=== PATIENT | female | born 1960 ===

== ENCOUNTER → 2017-12-07 | Outpatient (CLI) | payer OTHER ==
[~2017-12-07] MED LIST: LEVO88TA45 PO; LISI-362 PO
[2017-12-07 11:06] LABS: PLATELET COUNT, AUTOMATED 227 K/uL (150-450)
[2017-12-07 11:35] LABS: LDL CHOLESTEROL 141 mg/dl
== END ==
LOC: LAB 10:28
PROVIDERS: ATTEND Nurse Practitioner Family
DX: R51 Headache (principal); I10 Essential (primary) hypertension; E03.9 Hypothyroidism, unspecified
CPT/HCPCS: 36415; 82040; 82247; 82310; 82374; 82435; 82465; 82565; 82947; 83718; 84075; 84132; 84146; 84155; 84295; 84443; 84450; 84460; 84478; 84520; 85025; 85651; 86140

== ENCOUNTER → 2017-12-14 | Outpatient (CLI) | payer OTHER | LOC: LAB 15:02 | PROVIDERS: ATTEND Nurse Practitioner Family | DX: I10 Essential (primary) hypertension (principal) | CPT/HCPCS: 36415; 82310; 82374; 82435; 82565; 82947; 84132; 84295; 84520 ==

== ENCOUNTER → 2017-12-20 | Outpatient (CLI) | payer OTHER ==
[~2017-12-20] MED LIST changes: +GADOBENATE 529MG/1ML 15ML VIAL IVP ONE
--- NOTE | 2017-12-20 10:20 | RADIOLOGY IMAGING REPORT ---
FACILITY: [facility] - [place] PATIENT NAME: Tiffanie Oliveira : 1960 MR: [id number] V: [id number] EXAM DATE: ORDERING PHYSICIAN: MARCOS LAI TECHNOLOGIST: Location: [facility] - [place] Patient: Tiffanie Oliveira : 1960 Visit/Account:[id number] Date of Sevice: 12/20/2017 Examination: MR brain without and with contrast History: Headaches Comparison: None Technique: Multiplane MR imaging was performed through the brain without and with contrast. 15 cc IV multihance was administered. Findings: Diffusion: None Ventricles: Normal Midline shift: None Extraxial fluid: None Midline craniocervical structures: Normal Parenchyma: Less than five scattered punctate white matter high signal foci, within normal limits for age. Enhancement: No pathologic enhancement Vascular flow voids: Normal Orbits and paranasal sinuses: Normal Impression: 1. Less than five chronic punctate white matter high signal foci, within normal limits for age. 2. Otherwise normal brain MR without and with contrast. No acute intracranial abnormality. Report Dictated By: Case Valentino MD at 12/20/2017 10:11 AM Report E-Signed By: Case Valentino MD at 12/20/2017 10:15 AM WSN:[id number]
== END ==
LOC: MRI 07:10
PROVIDERS: ATTEND Nurse Practitioner Family
DX: R51 Headache (principal)
CPT/HCPCS: 70553; A9577

== ENCOUNTER → 2017-12-29 | Outpatient (CLI) | payer OTHER ==
[~2017-12-29] MED LIST changes: -GADOBENATE 529MG/1ML 15ML VIAL IVP ONE; +LOSA50TA74 PO
--- NOTE | 2017-12-29 11:22 | RADIOLOGY IMAGING REPORT ---
FACILITY: [facility] - [place] PATIENT NAME: Tiffanie Oliveira : 1960 MR: [id number] V: [id number] EXAM DATE: ORDERING PHYSICIAN: MARCOS LAI TECHNOLOGIST: Location: [facility] - [place] Patient: Tiffanie Oliveira : 1960 Visit/Account:[id number] Date of Sevice: 12/29/2017 Carotid ultrasound Indication: Headache and dizziness. Comparison:None available Findings: On the right : Peak systolic velocity of the right common carotid artery is 118 cm/s Peak systolic velocity of the right internal carotid artery is 132 cm/s There is normal antegrade flow of the right vertebral artery. The right ICA/CCA ratio is 1.2 No appreciable atherosclerotic calcific changes. On the left: Peak systolic velocity of the left common carotid artery is 122 cm/s Peak systolic velocity of the left internal carotid artery is 118 cm/s There is normal antegrade flow of the left vertebral artery. The left ICA/CCA ratio is 1.0 No appreciable atherosclerotic calcific changes. IMPRESSION: 1. No hemodynamically significant stenosis of the bilateral common carotid arteries and bilateral int ernal carotid arteries as above. Stenosis of X% validated velocity measurements with angiographic measurements, velocity criteria are extrapolated from diameter data as defined by the Society of Radiologists in Ultrasound Consensus Con ference Radiology 2003; 229; 340-346. Report Dictated By: Scot Thompson at 12/29/2017 11:17 AM Report E-Signed By: Scot Thompson at 12/29/2017 11:18 AM WSN:[id number]
== END ==
LOC: US 04:16
PROVIDERS: ATTEND Nurse Practitioner Family
DX: R42 Dizziness and giddiness (principal); R51 Headache
CPT/HCPCS: 93880

== ENCOUNTER → 2018-04-19 | Outpatient (CLI) | payer OTHER ==
[~2018-04-19] MED LIST changes: +LOSA100T75 PO; -LOSA50TA74 PO; +LOSA50TA80 PO
--- NOTE | 2018-04-20 09:02 | RADIOLOGY IMAGING REPORT ---
FACILITY: [facility] - [place] PATIENT NAME: ROBERT AVILA : [id number] MR: [id number] V: [id number] EXAM DATE: [id number] ORDERING PHYSICIAN: MARCOS LAI TECHNOLOGIST: Reina Oropeza PROCEDURE:BILATERAL DIGITAL SCREENING MAMMOGRAM WITH CAD ASSISTED INTERPRETATION & 3D TOMOSYNTHESIS COMPARISON:Prior mammograms 02/27/17, 02/26/16. INDICATIONS:SCREENING FINDINGS: There are bilateral sub glandular breast implants in place. Capsular calcifications are noted on the Right and appear to have increased when compared to the prior study. Scattered fibroglandular densities are seen throughout the breasts. The parenchymal pattern has remained stable allowing for difference in mammographic technique & patient positioning. DIAGNOSTIC CATEGORY 2--BENIGN FINDING. RECOMMENDATIONS: ROUTINE MAMMOGRAM AND CLINICAL EVALUATION. IMPRESSION: BIRADS 2: Benign finding. No significant abnormality is seen. Dictated by: Elo Little M.D. on 04/19/2018 at 18:14 Transcribed by: MONTY on 04/20/2018 at 8:08 Approved by: Elo Little M.D. on 04/20/2018 at 9:01 [facility]
== END ==
LOC: MAMO 01:12
PROVIDERS: ATTEND Nurse Practitioner Family
DX: Z12.31 Encounter for screening mammogram for malignant neoplasm of breast (principal); Z98.82 Breast implant status; R92.1 Mammographic calcification found on diagnostic imaging of breast
CPT/HCPCS: 77063; 77067

== ENCOUNTER → 2018-05-23 | Outpatient (REF) | payer OTHER | PROVIDERS: ATTEND Nurse Practitioner Family | DX: L72.0 Epidermal cyst (principal) | CPT/HCPCS: 88305 ==